=== PATIENT | male | born 1945 | race Caucasian/White ===

== ENCOUNTER 2018-12-20 12:29 | Day surgery (SDC) | payer BC ==
[2018-12-20] MEDS: PHENYLEPHRINE HCL 10% OPHTHAL SOL ONE ×3 (12:55→13:01)
[2018-12-20] MEDS: TROPICAMIDE 1% OPHTH SOL ONE ×3 (12:55→13:01)
[2018-12-20] MEDS: CYCLOPENTOLATE 1% SOL ONE ×3 (12:55→13:01)
[2018-12-20] MEDS ORDERED: KETOROLAC/HOME 0.5% SOL RIGHTEYE ONE ×3 (12:56→13:02)
[2018-12-20] MEDS ORDERED: MOXIFLOXACIN-HOME SOL RIGHTEYE ONE ×2 (12:56→12:59)
[2018-12-20] MEDS: TETRACAINE HCL 0.5 % 1 DROP SOL ONE ×2 (13:02→13:58)
[2018-12-20] MEDS ORDERED: MIDAZOLAM 2 MG/2 ML SOL ONE (13:38)
[2018-12-20] MEDS ORDERED: FENTANYL 100MCG/2ML SOL ONE (13:38)
[2018-12-20] MEDS ORDERED: LIDOCAINE HCL 2% MPF 10 ML SOL ONE (13:49)
[2018-12-20] MEDS ORDERED: POVIDONE IODINE 5% SOL ONE (13:50)
[2018-12-20] MEDS ORDERED: BSS W/ 0.5 MG P.F. EPI 1 BOTTLE ONE (13:50)
[2018-12-20] MEDS: LIDOCAINE HCL 2% MPF 10 ML SOL ONE ×2 (14:01→14:04)
[2018-12-20] MEDS ORDERED: ACETAZOLAMIDE 250 MG PO ONE (14:17)
[2018-12-20 14:47] VITALS: BP 136/76; PULSE 67; RESP 16; TEMP 98.1; O2SAT 94
== END 2018-12-20 14:45 | disposition home or self-care (01) | DRG 125 ==
LOC: SURG 12:29
PROVIDERS: ATTEND Ophthalmology
DX: H25.89 Other age-related cataract (principal); E11.9 Type 2 diabetes mellitus without complications
CPT/HCPCS: J2250; J3010; A9270-GY

== ENCOUNTER 2019-01-03 12:08 | Day surgery (SDC) | payer BC ==
[2019-01-03] MEDS ORDERED: MOXIFLOXACIN-HOME SOL LEFTEYE ONE ×2 (12:36→12:40)
[2019-01-03] MEDS: TROPICAMIDE 1% OPHTH SOL ONE ×3 (12:36→12:42)
[2019-01-03] MEDS: CYCLOPENTOLATE 1% SOL ONE ×3 (12:36→12:42)
[2019-01-03] MEDS ORDERED: KETOROLAC/HOME 0.5% SOL LEFTEYE ONE ×3 (12:36→12:42)
[2019-01-03] MEDS: PHENYLEPHRINE HCL 10% OPHTHAL SOL ONE ×3 (12:36→12:42)
[2019-01-03 12:37] VITALS: RESP 18
[2019-01-03] MEDS: TETRACAINE HCL 0.5 % 1 DROP SOL ONE ×2 (12:42→13:48)
[2019-01-03] MEDS ORDERED: FENTANYL 100MCG/2ML SOL ONE (13:22)
[2019-01-03] MEDS ORDERED: MIDAZOLAM 2 MG/2 ML SOL ONE (13:22)
[2019-01-03] MEDS ORDERED: LIDOCAINE HCL 2% MPF 10 ML SOL ONE (13:42)
[2019-01-03] MEDS ORDERED: BSS W/ 0.5 MG P.F. EPI 1 BOTTLE ONE (13:42)
[2019-01-03] MEDS ORDERED: POVIDONE IODINE 5% SOL ONE (13:42)
[2019-01-03] MEDS ORDERED: ACETAZOLAMIDE 250 MG PO ONE ×2 (14:00)
[2019-01-03 14:17] VITALS: BP 162/80; PULSE 64; TEMP 975; O2SAT 93
[2019-01-03] MEDS ORDERED: ACETAZOLAMIDE 500 MG CER PO ONE (14:23)
== END 2019-01-03 14:33 | disposition home or self-care (01) | DRG 125 ==
LOC: SURG 12:08
PROVIDERS: ATTEND Ophthalmology
DX: H25.89 Other age-related cataract (principal); E11.9 Type 2 diabetes mellitus without complications
CPT/HCPCS: 82962; J2250; J3010; A9270-GY